=== PATIENT | female | born 1960 | race Caucasian/White ===

== ENCOUNTER 2017-12-07 19:49 | Emergency (ER) | payer OTHER ==
[~2017-12-07] VITALS: Ht 170.2 cm; Wt 72.6 kg
[2017-12-07] MEDS ORDERED: ONDANSETRON HCL 4 MG/2 ML VIAL IV ONE (20:00)
[2017-12-07] MEDS ORDERED: MEPERIDINE HCL (50 MG/ML) 1 ML VIAL IV ONE (20:00)
[2017-12-07] MEDS ORDERED: MEPERIDINE HCL (50 MG/ML) 1 ML VIAL IM ONE ×2 (21:15→23:30)
[2017-12-07] MEDS ORDERED: LORazepam 0.5 MG TAB PO ONE (23:30)
[2017-12-07] MEDS ORDERED: ONDANSETRON ODT 4 MG TAB PO ONE (23:45)
[2017-12-08 00:54] VITALS: BP 142/83
== END 2017-12-08 01:29 | disposition home or self-care (01) ==
LOC: EDBD 19:49 → ER 19:52
DX: R51 Headache (principal)
CPT/HCPCS: 70450; 72125; 96372; 96374; 96375; 99284; J2175; J2405; Q0162